=== PATIENT | female | born 1970 | race Caucasian/White ===

== ENCOUNTER → 2017-03-12 | Outpatient (REF) | payer OTHER ==
[~2017-03-12] MED LIST: ACET65TA; ALBU17IN INH; CEPACOL; COLA100C2; COLA100C5 PO; OXYB5TAB10 PO; PERC5TAB12 PO; PERC5TAB8; PROBCAP4 PO; TRAM50TA2 PO; VERA120T2 PO
[2017-03-12 14:24] LABS: BLOOD UREA NITROGEN 11 MG/DL (7-18); CREATININE FOR GFR 0.59 MG/DL (0.55-1.02); GLOMERULAR FILTRATION RATE > 60.0 (>58)
== END ==
LOC: M LABDRAW1 13:35
PROVIDERS: ATTEND Physical Medicine & Rehabilitation
DX: M47.896 Other spondylosis, lumbar region (principal)

== ENCOUNTER → 2018-07-03 | Outpatient (REF) | payer OTHER ==
[2018-07-03 14:25] LABS: AMPHETAMINES URINE REFLEX NEGATIVE (NEGATIVE); BARBITURATES URINE REFLEX NEGATIVE (NEGATIVE); BENZODIAZEPINES URINE REFLEX NEGATIVE (NEGATIVE); CANNABINOIDS URINE REFLEX NEGATIVE (NEGATIVE); COCAINE METABOLITE URINE REFLE NEGATIVE (NEGATIVE); METHADONE URINE REFLEX NEGATIVE (NEGATIVE); OPIATES URINE REFLEX NEGATIVE (NEGATIVE); PHENCYCLIDINE URINE REFLEX NEGATIVE (NEGATIVE)
== END ==
LOC: M LABDRAW1 12:46
PROVIDERS: ATTEND Physical Medicine & Rehabilitation
DX: Z98.1 Arthrodesis status (principal)

== ENCOUNTER → 2020-01-25 | Outpatient (REF) | payer OTHER ==
[~2020-01-25] MED LIST changes: -VERA120T2 PO; +VERA120T9 PO
== END ==
LOC: M LAB REF 17:08
PROVIDERS: ATTEND Physician Assistant
DX: L82.1 Other seborrheic keratosis (principal)

== ENCOUNTER → 2023-07-31 | Outpatient (CLI) | payer MEDICAID, OTHER ==
[~2023-07-31] MED LIST changes: -OXYB5TAB10 PO; +OXYB5TAB14 PO
== END ==
LOC: M WHC 07:19
PROVIDERS: ATTEND Registered Nurse
DX: Z12.31 Encounter for screening mammogram for malignant neoplasm of breast (principal); R92.323 Mammographic fibroglandular density, bilateral breasts

== ENCOUNTER → 2023-08-12 | Outpatient (CLI) | payer OTHER | LOC: M EKG 14:10 | PROVIDERS: ATTEND Orthopaedic Surgery | DX: Z01.818 Encounter for other preprocedural examination (principal); R94.31 Abnormal electrocardiogram [ECG] [EKG] ==

== ENCOUNTER → 2025-02-19 | Outpatient (CLI) | payer OTHER | LOC: M RAD 15:27 | PROVIDERS: ATTEND Physician Assistant | DX: Z87.891 Personal history of nicotine dependence (principal) ==